=== PATIENT | male | born 1975 | race Caucasian/White ===

== ENCOUNTER 2017-05-20 12:49 | Observation (INO) ==
[2017-05-20] MEDS ORDERED: Acetaminophen 325 MG TABLET PO ONE (14:05)
[2017-05-20] MEDS ORDERED: Ibuprofen 600 MG TABLET PO ONE (14:09)
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
[2017-05-20] MEDS ORDERED: *HR* OxyCODONE Immed Rel 5 MG TABLET PO ONE (15:24)
[2017-05-20] MEDS ORDERED: *HR* Morphine 2 MG/ML SYRINGE IVP ONE (15:49)
[2017-05-20] MEDS ORDERED: Ondansetron 4 MG/2 ML VIAL IVP ONE (15:49)
[2017-05-20 16:06] LABS: Basophils % 0.3 %; Eosinophils # 0.1 K/mcL (0.0-0.6); Eosinophils % 0.6 %; Hematocrit 41.6 % (37.5-50.1); Hemoglobin 14.1 g/dL (12.9-16.9); Immature Granulocytes % 0.3 % (0-4); Lymphocytes # 1.9 K/mcL (0.6-4.6); Lymphocytes % 20.4 %; Mean Corpuscular HGB Conc 33.9 g/dL (31.6-35.5); Mean Corpuscular Hemoglobin 30.3 pg (28.0-33.3); Mean Corpuscular Volume 89.3 fL (83.0-100.0); Monocytes # 0.7 K/mcL (0.0-1.3); Monocytes % 7.2 %; Neutrophils # 6.5 K/mcL (1.6-8.9); Platelet Count 213 K/mcL (140-400); Red Blood Count 4.66 M/mcL (4.19-5.50); Segmented Neutrophils % 71.2 %
[2017-05-20] MEDS: 0.9 % Sodium Chloride 1,000 ML IVC SCH (16:08)
[2017-05-20 16:20] LABS: BUN/Creatinine Ratio 19 (6-26); Blood Urea Nitrogen 16 mg/dL (8-26); Calcium 9.7 mg/dL (8.6-10.8); Carbon Dioxide 26 mEq/L (19-29); Chloride 104 mEq/L (98-109); Glucose 118 mg/dL (70-99); Osmolality,Calculated 292 (280-300); Potassium 3.5 mEq/L (3.5-4.5); Sodium 140 mEq/L (136-145); eGFR For African Americans > 60 (> 60); eGFR For Non-African Americans > 60 (> 60)
[2017-05-20] MEDS ORDERED: *HR* Morphine 2 MG/ML SYRINGE IVP PRN ×2 (17:47→18:14)
[2017-05-20] MEDS ORDERED: Acetaminophen IV 500 MG/50 ML INFUS..BTL IVPB PRN (18:12)
[2017-05-20] MEDS: levETIRAcetam 250 MG TABLET PO SCH (20:08)
[2017-05-20] MEDS: Gabapentin 400 MG CAPSULE PO SCH (20:08)
[2017-05-20] MEDS ORDERED: Mirtazapine 15 MG TABLET PO SCH (21:00)
[2017-05-20] MEDS: *HR* Morphine 2 MG/ML SYRINGE IVP PRN (21:46)
[2017-05-21] MEDS: *HR* Morphine 2 MG/ML SYRINGE IVP PRN ×3 (02:08→10:59)
[2017-05-21] MEDS: 0.9 % Sodium Chloride 1,000 ML IVC SCH (02:09)
[2017-05-21] MEDS: levETIRAcetam 250 MG TABLET PO SCH (06:35)
[2017-05-21] MEDS: Gabapentin 400 MG CAPSULE PO SCH ×2 (07:31→11:10)
[2017-05-21 10:45] VITALS: BP 122/70
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
== END 2017-05-21 17:58 | disposition home or self-care (01) ==
LOC: 3NENU 12:49 → EMEROO 12:49 → 3NENU 17:35
PROVIDERS: ADMIT Orthopaedic Surgery Orthopaedic Surgery of the Spine; ATTEND Orthopaedic Surgery Orthopaedic Surgery of the Spine